=== PATIENT | male | born 1965 | race Caucasian/White ===

== ENCOUNTER → 2017-04-14 | Outpatient (CLI) | payer BC ==
[~2017-04-14] MED LIST: ATOR-24 PO
[2017-04-14 10:04] LABS: CHOLESTEROL/HDL RATIO 5.5
== END | disposition home or self-care (01) ==
LOC: C.LAB1850 08:37
PROVIDERS: ATTEND Internal Medicine Cardiovascular Disease
DX: E78.00 Pure hypercholesterolemia, unspecified (principal); R79.89 Other specified abnormal findings of blood chemistry

== ENCOUNTER 2024-03-09 12:03 | Inpatient (IN) ==
--- NOTE | 2024-03-09 12:27 | Emergency Department Note ---
History of Present Illness General Chief complaint: Urinary Symptoms Stated complaint: UTI - CONT WITH FEVER AND CHILLS Time Seen by Provider: 03/09/24 12:13 History of Present Illness Maximum Pain Intensity: 6 This is a 58-year-old male that presents to the emergency department via private vehicle with complaints of "UTI, sweating, hot sensation,". The patient states that this past Monday he noted some left flank pain described as more of an achy sensation/"stinging". He then notes progression of symptoms to include dysuria and then was seen at [facility] on 03/07/24. Patient states that he was given an injection of ceftriaxone which was found to be 1000 mg as well as started on oral Bactrim. The patient has taken about 4 doses thus far of the Bactrim. Although he is feeling better in regard to dysuria and flank pain, now he notes he is experiencing sensation of hot, clammy and also notes that he is soaking his bed sheets and sweat. No history of similar. Currently on oral metformin as well as atorvastatin. No other pertinent past medical history, surgeries or allergies. Home Medications Medication Instructions Recorded Confirmed Type atorvastatin 40 mg tablet 40 mg PO QPM #90 tabs 04/11/23 03/09/24 Rx metformin 1,000 mg tablet 1,000 mg PO DAILY #90 tabs 08/15/23 03/09/24 Rx sulfamethoxazole 800 1 tab PO BID 03/09/24 03/09/24 History mg-trimethoprim 160 mg tablet Allergies Allergy/AdvReac Type Severity Reaction Status Date / Time No Known Drug Allergies Allergy Verified 08/15/23 14:25 Past Med/Surg History Problem List (Updated 03/09/24 @ 22:42 by Nahid Pillai PA-C) Elevated procalcitonin (Acute) Hyponatremia (Acute) Prediabetes UTI (urinary tract infection) (Acute) Acute pyelonephritis Abnormal liver function test (Acute) Hypercholesterolemia Hyperglycemia (Acute) Viral infection Hypertension (Chronic) Superficial thrombophlebitis (Acute) Family History (Updated 03/25/19 @ 11:09 by Wyatt Flores) Father No pertinent family history Social History Smoking Status: Never smoker Hx Alcohol Use: Yes Alcohol type: beer Hx Substance Use: No Communication Ability: Effective Beliefs That Will Affect Care: None Current Living Situation: Family Feels Safe at Home: Yes Safety Concerns: Feels Safe At This Time Assistive Devices: Glasses and Hospital Bed Review of Systems A total of 10 systems reviewed and were otherwise negative Physical Exam Vital Signs Vital Signs - 24 hr 03/09/24 12:09 03/09/24 12:43 03/09/24 12:44 Temperature 36.4 C L Temperature Source Temporal Artery Scan Pulse Rate 77 73 68 Pulse Rate [Apical] Pulse Rate from SpO2 Sensor Pulse Rhythm [Apical] Pulse Strength [Apical] Respiratory Rate 18 18 Respiratory Effort / Characteristics Non-Labored Respiratory Depth Normal Respiratory Pattern Regular Blood Pressure 130/87 Blood Pressure [Right Arm] Blood Pressure Mean 101 Blood Pressure Mean [Right Arm] Pulse Oximetry 97 96 Oxygen Delivery Method Room Air Room Air Sepsis Recent Fever Within 48 Hours No Sepsis New/Unexplained Change in Mental Status N/A Sepsis Action Taken by Nursing No Action Required 03/09/24 12:54 03/09/24 13:00 03/09/24 13:00 Temperature Temperature Source Pulse Rate 67 68 Pulse Rate [Apical] Pulse Rate from SpO2 Sensor Pulse Rhythm [Apical] Pulse Strength [Apical] Respiratory Rate 20 20 Respiratory Effort / Characteristics Respiratory Depth Respiratory Pattern Blood Pressure 124/82 Blood Pressure [Right Arm] Blood Pressure Mean 103 Blood Pressure Mean [Right Arm] Pulse Oximetry Oxygen Delivery Method Sepsis Recent Fever Within 48 Hours Sepsis New/Unexplained Change in Mental Status Sepsis Action Taken by Nursing 03/09/24 13:30 03/09/24 13:30 03/09/24 14:00 Temperature Temperature Source Pulse Rate 68 Pulse Rate [Apical] Pulse Rate from SpO2 Sensor Pulse Rhythm [Apical] Pulse Strength [Apical] Respiratory Rate 15 Respiratory Effort / Characteristics Respiratory Depth Respiratory Pattern Blood Pressure 114/73 121/79 Blood Pressure [Right Arm] Blood Pressure Mean 94 91 Blood Pressure Mean [Right Arm] Pulse Oximetry Oxygen Delivery Method Sepsis Recent Fever Within 48 Hours Sepsis New/Unexplained Change in Mental Status Sepsis Action Taken by Nursing 03/09/24 14:00 03/09/24 15:14 Temperature Temperature Source Pulse Rate 65 Pulse Rate [Apical] 71 Pulse Rate from SpO2 Sensor 65 Pulse Rhythm [Apical] Regular Pulse Strength [Apical] Normal Respiratory Rate 21 18 Respiratory Effort / Characteristics Non-Labored Spontaneous Respiratory Depth Normal Respiratory Pattern Regular Blood Pressure Blood Pressure [Right Arm] 114/84 Blood Pressure Mean Blood Pressure Mean [Right Arm] 94 Pulse Oximetry 96 99 Oxygen Delivery Method Room Air Sepsis Recent Fever Within 48 Hours Sepsis New/Unexplained Change in Mental Status Sepsis Action Taken by Nursing VITAL SIGNS - Vital signs and nursing notes were reviewed. Stable and afebrile. GENERAL -58-year-old male appearing his stated age who is in no acute distress. Communicates well with provider and answers questions appropriately. SKIN - Without rashes. No meningeal or petechial rash. HEAD - NC/AT. EYES - Sclera anicteric. MOUTH/OROPHARYNX - Without perioral cyanosis. NECK - Neck with FROM. No nuchal rigidity. LUNGS - Chest wall symmetric without accessory muscle use, intercostals retractions, or central cyanosis. Normal vesicular breath sounds CTA B/L. No wheezes, rales, or rhonchi appreciated. CARDIAC - RRR ABDOMEN - Abdominal contour normal without pulsations or visible masses. BS normoactive all four quadrants. No tenderness, palpable masses, hepatosplenomegaly, or ascites noted. EXTREMITIES - No clubbing or peripheral cyanosis. +5/5 strength noted in UE/LE bilaterally. NEUROLOGIC - Cranial nerves II through XII grossly intact. PSYCH -alert, oriented and pleasant on exam. Course Administered Medications Sodium Chloride (Nss) 1,000 mls @ 125 mls/hr IV .Q8H CHECO Stop: 03/10/24 01:21 Last Admin: 03/09/24 17:47 Dose: 125 mls/hr Documented By: ADB Melatonin (Melatonin 3 Mg Tab) 9 mg PO HS PRN PRN Reason: Insomnia Stop: 04/08/24 17:21 Last Admin: 03/09/24 21:12 Dose: 9 mg Documented By: CRH Discontinued Medications Sodium Chloride (Nss) 1,000 mls @ 999 mls/hr IV .Q1H1M CHECO Stop: 03/09/24 13:30 Last Infusion: 03/09/24 14:32 Dose: Infused Documented By: Admin: 03/09/24 12:37 Dose: 999 mls/hr Documented By: GISSELL Ceftriaxone Sodium (Rocephin) 2,000 mg in 50 mls @ 100 mls/hr IV NOW STA Stop: 03/09/24 15:24 Last Infusion: 03/09/24 15:41 Dose: Infused Documented By: Admin: 03/09/24 15:12 Dose: 100 mls/hr Documented By: KODI Ibuprofen (Ibuprofen 200 Mg Tab) 400 mg PO Q6H PRN PRN Reason: Pain or Fever Stop: 04/08/24 17:21 Last Admin: 03/09/24 19:19 Dose: 400 mg Documented By: LUIS E Ibuprofen (Ibuprofen 200 Mg Tab) 400 mg PO NOW STA Stop: 03/09/24 20:43 Last Admin: 03/09/24 21:11 Dose: 400 mg Documented By: LUIS E Ioversol (Optiray 320 100ml) 94 ml IV ONCE ONE Stop: 03/09/24 13:45 Last Admin: 03/09/24 13:44 Dose: 94 ml Documented By: KEVIN Medical Decision Making Laboratory Data 03/09/24 12:30 03/09/24 12:30 Lab Results 03/09/24 03/09/24 03/09/24 Range/Units 12:30 12:30 12:30 WBC 6.66 (4.8-10.8) K/ul RBC 5.48 (4.70-6.10) M/uL Hgb 16.2 (14.0-18.0) g/dl Hct 48.0 (42.0-52.0) % MCV 87.6 (80.0-100.0) fL MCH 29.6 (25.0-34.0) pg MCHC 33.8 (32.0-36.0) g/dL RDW Std Deviation 42.4 (36.4-46.3) fL RDW Coeff of Bryan 13.2 (11.5-14.5) % Plt Count 224 (130-400) K/uL MPV 10.2 (9.4-12.4) fL Immature Gran % (Auto) 0.3 % Neut % (Auto) 76.2 % Lymph % (Auto) 11.3 % [place] % (Auto) 11.6 % Eos % (Auto) 0.3 % Baso % (Auto) 0.3 % Neut # (Auto) 5.08 (1.40-6.50) K/uL Lymph # (Auto) 0.75 L (1.20-3.40) K/uL [place] # (Auto) 0.77 H (0.11-0.59) K/uL Eos # (Auto) 0.02 (0.00-0.50) K/uL Baso # (Auto) 0.02 (0.00-0.20) K/uL Immature Gran # (Auto) 0.02 (0.01-0.20) K/uL Sodium 132 L (136-145) mmol/L Potassium 3.8 (3.5-5.1) mmol/L Chloride 97 L (98-107) mmol/L Carbon Dioxide 28 (21-32) mmol/L Anion Gap 7 (3-11) BUN 22 (6-23) mg/dl Creatinine 1.06 (0.6-1.4) mg/dl Est Cr Clr Drug Dosing 94.9 ml/min Est GFR ( Amer) 90.5 ml/min Est GFR (Non-Af Amer) 78.1 ml/min BUN/Creatinine Ratio 20.8 H (10-20) Glucose 97 (70-99(Fasting)) mg/dl Lactate 1.2 (0.4-2.0) mmol/L Calcium 9.5 (8.6-10.3) mg/dl Total Bilirubin 0.7 (0.2-1.0) mg/dl AST 169 H (13-39) U/L ALT 206 H (7-52) U/L Alkaline Phosphatase 275 H (34-104) U/L Total Protein 7.6 (6.0-8.3) gm/dl Albumin 4.3 (3.4-5.0) gm/dl Globulin 3.3 (2.5-4.0) gm/dl Albumin/Globulin Ratio 1.3 (0.9-2) Procalcitonin 0.61 H (0-0.5) ng/ml Urine Color Urine Appearance (Clear) Urine pH (4.5-7.5) Ur Specific [place] (1.000-1.030) Urine Protein (Negative) Urine Glucose (UA) (Negative) Urine Ketones (Negative) Urine Blood (Negative) Urine Nitrite (Negative) Urine Bilirubin (Negative) Urine Urobilinogen (Negative) Ur Leukocyte Esterase (Negative) Urine WBC (Auto) (0-5) /hpf Urine RBC (Auto) (0-2) /hpf U Hyaline Cast (Auto) (0-2) /lpf U Epithel Cells (Auto) (0-2) /hpf Urine Bacteria (Auto) (None Seen) Anaplasma Smear See Comment Cancelled Babesia Smear See Comment Cancelled Lyme Disease Screen Negative (Negative) 03/09/24 Range/Units 13:47 WBC (4.8-10.8) K/ul RBC (4.70-6.10) M/uL Hgb (14.0-18.0) g/dl Hct (42.0-52.0) % MCV (80.0-100.0) fL MCH (25.0-34.0) pg MCHC (32.0-36.0) g/dL RDW Std Deviation (36.4-46.3) fL RDW Coeff of Bryan (11.5-14.5) % Plt Count (130-400) K/uL MPV (9.4-12.4) fL Immature Gran % (Auto) % Neut % (Auto) % Lymph % (Auto) % [place] % (Auto) % Eos % (Auto) % Baso % (Auto) % Neut # (Auto) (1.40-6.50) K/uL Lymph # (Auto) (1.20-3.40) K/uL [place] # (Auto) (0.11-0.59) K/uL Eos # (Auto) (0.00-0.50) K/uL Baso # (Auto) (0.00-0.20) K/uL Immature Gran # (Auto) (0.01-0.20) K/uL Sodium (136-145) mmol/L Potassium (3.5-5.1) mmol/L Chloride (98-107) mmol/L Carbon Dioxide (21-32) mmol/L Anion Gap (3-11) BUN (6-23) mg/dl Creatinine (0.6-1.4) mg/dl Est Cr Clr Drug Dosing ml/min Est GFR ( Amer) ml/min Est GFR (Non-Af Amer) ml/min BUN/Creatinine Ratio (10-20) Glucose (70-99(Fasting)) mg/dl Lactate (0.4-2.0) mmol/L Calcium (8.6-10.3) mg/dl Total Bilirubin (0.2-1.0) mg/dl AST (13-39) U/L ALT (7-52) U/L Alkaline Phosphatase (34-104) U/L Total Protein (6.0-8.3) gm/dl Albumin (3.4-5.0) gm/dl Globulin (2.5-4.0) gm/dl Albumin/Globulin Ratio (0.9-2) Procalcitonin (0-0.5) ng/ml Urine Color Yellow Urine Appearance Clear (Clear) Urine pH 6.5 (4.5-7.5) Ur Specific [place] 1.016 (1.000-1.030) Urine Protein Negative (Negative) Urine Glucose (UA) Negative (Negative) Urine Ketones Negative (Negative) Urine Blood Negative (Negative) Urine Nitrite Negative (Negative) Urine Bilirubin Negative (Negative) Urine Urobilinogen Negative (Negative) Ur Leukocyte Esterase 2+ H (Negative) Urine WBC (Auto) 21-50 H (0-5) /hpf Urine RBC (Auto) 0-2 (0-2) /hpf U Hyaline Cast (Auto) 0-2 (0-2) /lpf U Epithel Cells (Auto) 0-2 (0-2) /hpf Urine Bacteria (Auto) None Seen (None Seen) Anaplasma Smear Babesia Smear Lyme Disease Screen (Negative) Imaging Data Radiologist's Impression: Abdomen/Pelvis CT 03/09/24 12:21 CT abd pelvis IV con only CLINICAL HISTORY: L flank pain, dysuria, uti TECHNIQUE: Helical axial images of the abdomen and pelvis were obtained and displayed. Automated dose lowering techniques and/or adjustment according to patient size were utilized for this exam. This exam was performed with intravenous contrast. CT DOSE: 1446.54 mGy.cm COMPARISON: None available at the time of this dictation. FINDINGS: Lower chest: Bibasilar atelectasis versus scarring is seen. Liver: Unremarkable. No focal lesions are seen. Gallbladder and biliary tree: No calcified gallstones. Normal caliber wall. No intra- or extrahepatic biliary ductal dilation. Pancreas: Unremarkable, no focal lesions. Spleen: Splenule is incidentally noted. Adrenals: Unremarkable. Kidneys and ureters: Perinephric stranding is noted bilaterally. Bladder: Unremarkable. Reproductive organs: Unremarkable. Bowel: The appendix is normal. Lymph nodes Retroperitoneal: Unremarkable. Pelvic: Unremarkable. Mesenteric: Unremarkable. Peritoneum: Normal. Vessels: Unremarkable. Abdominal wall: Unremarkable. Bones: Unremarkable. IMPRESSION: No acute abnormality and in particular no evidence of obstructive nephrolithiasis or hydronephrosis. No diverticulitis is seen. ACT 112: Negative or not required by law. Electronically signed by: Stanislaw Patel M.D. 03/09/2024 2:44 PM MDM Narrative Patient was seen and evaluated as above in room B02. Review was performed of triage nursing notes and vital signs. No previous ED visits for review at time of evaluation. Patient does present with documentation from [facility] which I did review. He did receive IM ceftriaxone and started on Bactrim about 2 days ago. After obtaining a thorough history and physical examination the above work up was performed. 12:36 PM: I called the [facility] office where the patient was recently seen and dx with uti in an attempt to obtain urine culture results if available. The culture was faxed over and it was a pulmonary report. This did show E. coli greater than 100,000 colony-forming units per mL. There are no sensitivities for review at this time. Despite the antibiotics, patient notes sweats, hot sensation. Labs reveal no leukocytosis or concerning anemia. Mild hyponatremia 132. There is mild elevation of BUN/creatinine ratio at 20.8. Mild hyperglycemia 136. There is transaminitis noted. Patient denies any recent acetaminophen use or any excessive acetaminophen use. He denies any alcohol use. This appears to be a new finding. In the setting of associated hyponatremia will add tickborne labs at this time to include anaplasmosis, babesiosis and Lyme disease. Lactate returned normal. Procalcitonin 0.61. Although the patient does not have any septic vital signs, this does further support suspicion for infectious process. The patient's urinalysis did return with evidence of infection noting 2+ leukocytes and 2150 white blood cells. This appears to be a noncontaminated sample. No bacteria seen. Lyme screen negative. Smear for Anaplasma and Babesia returned negative with PCR testing pending. A CT scan was then performed of the abdomen/pelvis. This does not show any acute abnormality per radiologist however I will note that I am concerned about ascending urinary tract infection clinically. Blood culture pending. IV ceftriaxone was ordered to cover the suspected urinary source of infection as well as IV fluids. The patient does require hospitalization at this time noting progression of symptoms despite outpatient antibiotics with UTI. Case was discussed with the hospitalist service. Please refer to further documentation regarding his stay. GCS: 15 In the evaluation and treatment of this patient the following differential diagnoses were entertained: UTI, pyelonephritis, diverticulitis, sepsis, kidney stone, among others. Impression & Plan UTI (urinary tract infection), Hyperglycemia, Abnormal liver function test, Hyponatremia, Elevated procalcitonin Discharge Plan Visit Data Chief Complaint: Urinary Symptoms Stated Complaint: UTI - CONT WITH FEVER AND CHILLS ED Provider: [facility] Provider: Nahid Pillai Discharge Problem: UTI (urinary tract infection), Hyperglycemia, Abnormal liver function test, Hyponatremia, Elevated procalcitonin Patient Disposition: Admitted As Inpatient Condition: Good Discharge Instructions Interventions: ED Discharge Assessment Last Done: 03/09/24 17:15
[2024-03-09] MEDS: SODIUM CHLORIDE 0.9% 1,000 ML IV SCH ×2 (12:37→17:47)
[2024-03-09 13:04] LABS: Basophils # (auto) 0.02 K/uL (0.00-0.20); Basophils % (auto) 0.3 %; Eosinophils # (auto) 0.02 K/uL (0.00-0.50); Eosinophils % (auto) 0.3 %; Hemoglobin 16.2 g/dl (14.0-18.0); Immature Granulocytes # (auto) 0.02 K/uL (0.01-0.20); Immature Granulocytes % (auto) 0.3 %; Lymphocytes # (auto) 0.75 K/uL (1.20-3.40); Lymphocytes % (auto) 11.3 %; Mean Corpuscular Hemoglobin 29.6 pg (25.0-34.0); Mean Corpuscular Hgb Conc 33.8 g/dL (32.0-36.0); Mean Corpuscular Volume 87.6 fL (80.0-100.0); Mean Platelet Volume 10.2 fL (9.4-12.4); Monocytes # (auto) 0.77 K/uL (0.11-0.59); Monocytes % (auto) 11.6 %; Neutrophils # (auto) 5.08 K/uL (1.40-6.50); Neutrophils % (auto) 76.2 %; Platelet Count 224 K/uL (130-400); RDW Coefficient of Variation 13.2 % (11.5-14.5); RDW Standard Deviation 42.4 fL (36.4-46.3); Red Blood Count 5.48 M/uL (4.70-6.10); White Blood Count 6.66 K/ul (4.8-10.8)
[2024-03-09 13:22] LABS: Albumin Globulin Ratio 1.3 (0.9-2); Albumin Level 4.3 gm/dl (3.4-5.0); BUN Creatinine Ratio 20.8 (10-20); Bilirubin,Total 0.7 mg/dl (0.2-1.0); Calcium 9.5 mg/dl (8.6-10.3); Creatinine Clr Calc Pharmacy 94.9 ml/min; Est GFR (African American) 90.5 ml/min; Est GFR (Non-African American) 78.1 ml/min; Globulin 3.3 gm/dl (2.5-4.0); Potassium 3.8 mmol/L (3.5-5.1); Total Protein 7.6 gm/dl (6.0-8.3)
[2024-03-09] MEDS: OPTIRAY 320 100ml IV ONE (13:44)
[2024-03-09 14:02] LABS: Appearance Urine Clear (Clear); Bacteria Urine Automated None Seen (None Seen); Bilirubin Urine Negative (Negative); Blood Urine Negative (Negative); Cast Urine Automated 0-2 /lpf (0-2); Color Urine Yellow; Epithelial Cell Urine Auto 0-2 /hpf (0-2); Glucose Urine UA Negative (Negative); Ketones Urine Negative (Negative); Leukocyte Esterase Urine 2+ (Negative); Nitrite Urine Negative (Negative); Protein Urine Negative (Negative); RBC Urine Automated 0-2 /hpf (0-2); Specific Gravity Urine 1.016 (1.000-1.030); Urobilinogen Urine Negative (Negative); WBC Urine Automated 21-50 /hpf (0-5); pH Urine 6.5 (4.5-7.5)
--- NOTE | 2024-03-09 14:46 | CT Scan Report ---
CT abd pelvis IV con only CLINICAL HISTORY: L flank pain, dysuria, uti TECHNIQUE: Helical axial images of the abdomen and pelvis were obtained and displayed. Automated dose lowering techniques and/or adjustment according to patient size were utilized for this exam. This e xam was performed with intravenous contrast. CT DOSE: 1446.54 mGy.cm COMPARISON: None available at the time of this dictation. FINDINGS: Lower chest: Bibasilar atelectasis versus scarring is seen. Liver: Unremarkable. No focal lesions are seen. Gallbladder and biliary tree: No calcified gallstones. Normal caliber wall. No intra- or extrahepatic biliary ductal dilation. Pancreas: Unremarkable, no focal lesions. Spleen: Splenule is incidentally noted. Adrenals: Unremarkable. Kidneys and ureters: Perinephric stranding is noted bilaterally. Bladder: Unremarkable. Reproductive organs: Unremarkable. Bowel: The appendix is normal. Lymph nodes Retroperitoneal: Unremarkable. Pelvic: Unremarkable. Mesenteric: Unremarkable. Peritoneum: Normal. Vessels: Unremarkable. Abdominal wall: Unremarkable. Bones: Unremarkable. IMPRESSION: No acute abnormality and in particular no evidence of obstructive nephrolithiasis or hydronephrosis. No diverticulitis is seen. ACT 112: Negative or not required by law. Electronically signed by: Stanislaw Patel M.D. 03/09/2024 2:44 PM
[2024-03-09] MEDS: cefTRIAXone SODIUM 2,000 MG/50 ML BAG IV STA (15:12)
--- NOTE | 2024-03-09 16:36 | History & Physical Report ---
Date of Service March 09, 2024 Assessment & Plan (1) Acute pyelonephritis: Plan: Acute bilateral pyelonephritis secondary to e. coli UTI - Place in observation to med/surg - Urine culture with E. coli from [facility], sensitivities not provided - Repeat UA with reflex culture and sensitivity has been ordered - CTAP w/ bilateral perinephritic stranding c/w pyelo - Stop Bactrim, given Rocephin 2g in ED, will continue IV daily, convert to Cefdinir 300mg BID upon discharge, would treat for 10-14 days - Ibuprofen for fever/pain d/t transaminitis - IVF with NSS @ 125 ml/hr x1 L then stop (2) Abnormal liver function test: Plan: ?Acute v chronic - Has been told he had elevated LFTs in the past but today's values are higher than previous - AST 169, ALT 206, ALP 275 - On both Metformin and Atorvastatin, will hold both, rec drug holiday for statin x3 months - IVF given as noted above, trend LFTs wtih CMP in AM - No abnormal liver imaging noted on CT - F/u with Dr. Braun as o/p - Tick borne studies negative (3) Hypercholesterolemia: Plan: Chronic - On Atorvastatin x many years - Hold due to transaminitis (4) Prediabetes: Plan: Chronic - Last a1c 6.1% in August 2023 - On Metformin 1000mg daily which was increased in August from 500mg daily - D/c due to transaminitis and would consider alternative agent, may be good candidate for GLP1 given obesity Plan Lovenox has been ordered for DVT ppx. AM labs have been ordered including cbc and cmp. Above plan of care has been d/w Dr. Aguillon who will also see and evaluate this patient. Further orders will be implemented as warranted by attending. History of Present Illness Chief Complaint: Fever and chills Primary Care Provider: Jack Braun MD Naif Means is a 58 yo M with a pmhx of borderline DMT2, obesity, and HLD who presents to the ER today c/o persistent fever and chills despite being on treatment for the past 3 days for a UTI. He reports that on Monday or Monday of this week, he was experiencing mid back pain that was worse on the left side. The following day, he began having dysuria. He has no prior h/o UTIs and has had no issues with hematuria in the past, post void dribbling, urinary retention or hesitancy. His symptoms then progressed to generalized myalgias and chills. He went to [facility] on 03/07 and he was diagnosed with a UTI. He was given a dose of IM Rocephin and prescribed a course of Bactrim DS. Despite the Bactrim, he reports ongoing headache and suspected fever + chills which subsequently prompted him to come to the ER for evaluation. Here, he has a normal wbc count without left shift. He has a mildly elevated procalcitonin level of 0.61. His LFTs including his AST, ALT, and alk phos are elevated. He denies any recent tick bites. CTAP was negative for cirrhotic disease of the liver or any CBD dilatation. He is currently on Atorvastatin 40mg daily for HLD and is also on Metformin for borderline DM which was increased back in August from 500mg daily to 1000mg daily. He seldomly uses etoh, maybe once a month. Father had liver disease due to alcohol. He was medicated with 2g IV Rocephin and 1L of NSS. He is currently resting comfortably in his room and has no complaints. He denies abd pain, n/v/d, headache, fever, chills, chest pain or dyspnea. He is being placed in observation for further care. Allergies Allergy/AdvReac Type Severity Reaction Status Date / Time No Known Drug Allergies Allergy Verified 08/15/23 14:25 Home Medications Medication Instructions Recorded Confirmed Type atorvastatin 40 mg tablet 40 mg PO QPM #90 tabs 04/11/23 03/09/24 Rx metformin 1,000 mg tablet 1,000 mg PO DAILY #90 tabs 08/15/23 03/09/24 Rx ciprofloxacin HCl 500 mg tablet 500 mg PO BID 10 days #20 tabs 03/11/24 Rx Past Med/Surg History Problem List (Updated 03/17/24 @ 06:09 by Juan Carlos Aguillon MD) Elevated procalcitonin (Acute) Hyponatremia (Acute) UTI (urinary tract infection) (Acute) Acute pyelonephritis Abnormal liver function test (Acute) Hyperglycemia (Acute) Viral infection Superficial thrombophlebitis (Acute) Medical History (Updated 03/17/24 @ 06:09 by Juan Carlos Aguillon MD) Prediabetes Hypercholesterolemia Hypertension Family History Father No pertinent family history Social History Smoking Status: Never smoker Hx Alcohol Use: Yes Alcohol type: beer Hx Substance Use: No Communication Ability: Effective Beliefs That Will Affect Care: None Current Living Situation: Family Feels Safe at Home: Yes Assistive Devices: None Review of Systems 2 Review of Systems: All systems reviewed and are unremarkable except as noted in HPI and below. Denies nasal congestion, sore throat, cough, chest pain, shortness of breath, palpitations, orthopnea, PND, abdominal pain, n/v/d, constipation, dysuria, hematuria, frequency, joint pain or swelling, easy bruising or bleeding, skin lesions or rashes. Physical Exam 2 Physical Exam: GENERAL: 58 yo obese middle aged WM. NAD. EYES: EOMI. PERRLA. Anicteric. HENT: Moist mucous membranes. No scleral icterus. No cervical lymphadenopathy. LUNGS: Clear to auscultation bilaterally. No accessory muscle use. No W/R/R. CARDIOVASCULAR: Regular rate and rhythm. No M/G/R. No JVD. ABDOMEN: Soft, non-tender and non-distended. No palpable masses. Bs normoactive x 4 quad. -CVA tenderness. EXTREMITIES: No edema. Non-tender. Peripheral pulses +2/4. NEUROLOGIC: A&O x3. No focal neurological deficits. CN II-XII grossly intact. PSYCHIATRIC: Cooperative. Appropriate mood and affect. SKIN: Warm, dry, intact. No rashes or lesions. Results & Data Results & Data Vital Signs (Past 12 Hours) Vital Signs Temp Pulse Pulse Resp BP BP Pulse Ox 03/09/24 15:14 71 18 114/84 99 03/09/24 14:00 65 21 96 03/09/24 14:00 121/79 03/09/24 13:30 68 15 03/09/24 13:30 114/73 03/09/24 13:00 68 20 03/09/24 13:00 124/82 03/09/24 12:54 67 20 03/09/24 12:44 68 03/09/24 12:43 73 18 96 03/09/24 12:09 36.4 C L 77 18 130/87 97 O2 Del Method 03/09/24 15:14 Room Air 03/09/24 14:00 03/09/24 14:00 03/09/24 13:30 03/09/24 13:30 03/09/24 13:00 03/09/24 13:00 03/09/24 12:54 03/09/24 12:44 03/09/24 12:43 Room Air 03/09/24 12:09 Room Air Laboratory Results 03/09/24 12:30 03/09/24 12:30 Diagnostic Findings Abdomen/Pelvis CT 03/09/24 12:21 CT abd pelvis IV con only CLINICAL HISTORY: L flank pain, dysuria, uti TECHNIQUE: Helical axial images of the abdomen and pelvis were obtained and displayed. Automated dose lowering techniques and/or adjustment according to patient size were utilized for this exam. This exam was performed with intravenous contrast. CT DOSE: 1446.54 mGy.cm COMPARISON: None available at the time of this dictation. FINDINGS: Lower chest: Bibasilar atelectasis versus scarring is seen. Liver: Unremarkable. No focal lesions are seen. Gallbladder and biliary tree: No calcified gallstones. Normal caliber wall. No intra- or extrahepatic biliary ductal dilation. Pancreas: Unremarkable, no focal lesions. Spleen: Splenule is incidentally noted. Adrenals: Unremarkable. Kidneys and ureters: Perinephric stranding is noted bilaterally. Bladder: Unremarkable. Reproductive organs: Unremarkable. Bowel: The appendix is normal. Lymph nodes Retroperitoneal: Unremarkable. Pelvic: Unremarkable. Mesenteric: Unremarkable. Peritoneum: Normal. Vessels: Unremarkable. Abdominal wall: Unremarkable. Bones: Unremarkable. IMPRESSION: No acute abnormality and in particular no evidence of obstructive nephrolithiasis or hydronephrosis. No diverticulitis is seen. ACT 112: Negative or not required by law. Electronically signed by: Stanislaw Patel M.D. 03/09/2024 2:44 PM Supervising Physician Co-Signing Physician Notes Attending Attestation & Admit Note: Pt seen/examined, chart reviewed, care plan d/w KVNG Ferrer. I agree w/ the joe components of her admission documentation. 58yo male with history of Pre-DM, HTN, hyperlipidemia who presented with ongoing fevers, chills, poor appetite, and simply feeling unwell. He had been seen at a local urgent care on 03/07 and dx with pyelonephritis based on his clinical picture. Was given rocephin IM x 1 and was sent home on bactrim DS BID. Despite the above he continued with fevers. Upon ER presentation today he had evidence of abnormal LFTs/acute hepatitis. PMH/PSH/allergies/meds/sochx/famhx - reviewed VSS gen - nontoxic, NAD mouth - MM slightly dry neck - no JVD heart - RRR, s1 s2, no murmur lungs - CTA b/l abd - soft ND BS+; no HSM; b/l flanks nontender to palpation ext - no edema, pulses 2+ b/l skin - no jaundice labs reviewed limited urgent care information reviewed imaging reviewed - "Perinephric stranding is noted bilaterally" A/P: 1. ecoli UTI/pyelonephritis 2. acute hepatitis/abnormal LFTs 3. pre-DM 4. h/o hyperlipidemia & HTN agree with IV rocephin will call urgent care tomorrow to see if e.coli sensitivities are available serial LFTs; anaplasmosis DNA sent; check acute hepatitis profile and consider EBV/CMV hold statin follow blood cx's here Juan Carlos Aguillon MD PG Care Time/CCT Total # of Minutes Spent Total Time Spent with Patient: Total time spent is greater than 50% in coordination of care (as documented) at patient's floor/unit and/or counseling patient: 75 including face to face, chart review, discussing case with ER provider, entering orders into chart, and documenting in electronic medical record. Coding Level of Care Code 92939 INT INP/OBS CARE MIN Diagnoses Acute pyelonephritis N10 Abnormal liver function test R94.5 Hypercholesterolemia E78.00 Prediabetes R73.03
[2024-03-09] MEDS ORDERED: MAGNESIUM HYDROXIDE SUSP 30 ML UDC PO PRN (17:22)
[2024-03-09] MEDS ORDERED: ONDANSETRON INJ 2 MG/ML 2 ML VIAL IV PRN (17:22)
[2024-03-09] MEDS ORDERED: ALUMINUM/MAGNESIUM SUSP 30 ML UDC PO PRN (17:22)
[2024-03-09] MEDS ORDERED: MELATONIN 3 MG TAB PO PRN (17:22)
[2024-03-09] MEDS ORDERED: POLYETHYLENE (MIRALAX) 17 GM PACK PO PRN (17:22)
[2024-03-09] MEDS: IBUPROFEN 200 MG TAB PO PRN (19:19)
[2024-03-09] MEDS: IBUPROFEN 200 MG TAB PO STA (21:11)
[2024-03-09] MEDS: MELATONIN 3 MG TAB PO PRN (21:12)
[2024-03-10 06:47] LABS: Basophils # (auto) 0.03 K/uL (0.00-0.20); Basophils % (auto) 0.6 %; Eosinophils # (auto) 0.03 K/uL (0.00-0.50); Eosinophils % (auto) 0.6 %; Hematocrit (blood only) 43.8 % (42.0-52.0); Hemoglobin 14.6 g/dl (14.0-18.0); Immature Granulocytes # (auto) 0.03 K/uL (0.01-0.20); Immature Granulocytes % (auto) 0.6 %; Lymphocytes # (auto) 1.06 K/uL (1.20-3.40); Lymphocytes % (auto) 21.5 %; Mean Corpuscular Hemoglobin 29.3 pg (25.0-34.0); Mean Corpuscular Hgb Conc 33.3 g/dL (32.0-36.0); Mean Platelet Volume 10.3 fL (9.4-12.4); Monocytes # (auto) 1.01 K/uL (0.11-0.59); Monocytes % (auto) 20.5 %; Neutrophils # (auto) 2.77 K/uL (1.40-6.50); Neutrophils % (auto) 56.2 %; Platelet Count 211 K/uL (130-400); RDW Standard Deviation 41.8 fL (36.4-46.3); Red Blood Count 4.98 M/uL (4.70-6.10); White Blood Count 4.93 K/ul (4.8-10.8)
[2024-03-10 07:20] LABS: Albumin Globulin Ratio 1.3 (0.9-2); Albumin Level 3.6 gm/dl (3.4-5.0); BUN Creatinine Ratio 18.6 (10-20); Bilirubin,Total 0.5 mg/dl (0.2-1.0); Calcium 8.4 mg/dl (8.6-10.3); Creatinine Clr Calc Pharmacy 98.6 ml/min; Est GFR (African American) 94.8 ml/min; Est GFR (Non-African American) 81.8 ml/min; Globulin 2.8 gm/dl (2.5-4.0); Total Protein 6.4 gm/dl (6.0-8.3)
[2024-03-10] MEDS: IBUPROFEN 800 MG TAB PO PRN (11:14)
[2024-03-10] MEDS: cefTRIAXone SODIUM 2,000 MG/50 ML BAG IV SCH (15:02)
--- NOTE | 2024-03-10 18:55 | Ultrasound Report ---
US gallbladder CLINICAL HISTORY: abnormal LFTs; eval biliary tract disease TECHNIQUE: Multiple real-time sonographic images of the right upper quadrant were obtained. Comparison: Comparison is made to CT abdomen pelvis 03/09/2024 FINDINGS: Echogenic foci are seen with scattered echogenic foci with a starry ron appearance. No focal mass les ions are seen. No intrahepatic ductal dilatation is seen. Gallbladder stone is partially visualiz ed at the gallbladder neck. The wall measures 0.2 cm in thickness. A sonographic Horvath's sign was no t elicited by the plumbing service technician. The common duct measures 0.4 cm in diameter at the level of the hepa tic artery. The visualized portions of the pancreas appear normal. The right kidney shows normal echogenicity, cortical thickness and renal contour. The right kidney sh ows no evidence of hydronephrosis or mass. No ascites or free fluid is seen in Yung's pouch. IMPRESSION: 1. Echogenic foci throughout a background of hypoechoic liver. These findings are nonspecific but ca n be seen in acute hepatitis. 2. Cholelithiasis without cholecystitis. ACT 112: Negative or not required by law. Electronically signed by: Stanislaw Patel M.D. 03/10/2024 6:53 PM
--- NOTE | 2024-03-10 20:29 | Hospitalist Progress Note ---
Date of Service March 10, 2024 Assessment & Plan (1) Acute pyelonephritis: Plan: CT a/p at time of admission w/ bilateral perinephritic stranding suggestive of pyelonephritis Had gone to local urgent care on 03/07 with flank pain and u/a during that urgent care visit was c/w UTI Given rocephin and d/c home on bactrim Culture grew pansensitive e.coli will not resume bactrim due to concern it could have caused the acute rise in LFTs will stop rocephin and change to PO cipro x 10 days overall he is slowly improving did d/w him today that fevers from pyelonephritis can sometimes last 4-5 days blood cx's remain negative here (2) Abnormal liver function test: Plan: etiology? 2nd to medications? (bactrim for UTI, statin) viral? other? obtain RUQ u/s since LFTs worsening - ensure no stones/biliary tract disease are present repeat LFTs in am consider CMV/EBV/acute hepatitis profile (3) Hypercholesterolemia: Plan: On Atorvastatin but holding due to transaminitis (4) Prediabetes: Plan: Chronic - Last a1c 6.1% in August 2023 - On Metformin 1000mg daily which was increased in August from 500mg daily hold metformin while here Plan DVT proph - low risk, ambulating, defer on chemical means at this time Admission and Anticipated Discharge Date Admission Date: March 09, 2024 Subjective patient feeling somewhat better today improved appetite did have fever last pm, and feels feverish again this evening - but overall improved from prior no abd pain or N/V no LUTS no flank pain no back pain Review of Systems 2 Review of Systems: cv - no cp pulm - no cough or dyspnea GI - no abd pain Physical Exam 2 Physical Exam: gen - nontoxic, NAD, looks better today mouth - MMM neck - no JVD heart - RRR, s1 s2, no murmur lungs - CTA b/l back - nontender b/l flanks abd - soft NT ND BS+; no HSM ext - no edema, pulses 2+ b/l Results & Data Results & Data Vital Signs (Past 12 Hours) Vital Signs Temp Pulse Resp BP Pulse Ox O2 Del Method 03/10/24 15:26 36.9 C 69 16 131/89 95 Room Air Laboratory Results Laboratory Results - last 24 hr 03/09/24 03/10/24 19:51 06:05 WBC 4.93 RBC 4.98 Hgb 14.6 Hct 43.8 MCV 88.0 MCH 29.3 MCHC 33.3 RDW Std Deviation 41.8 RDW Coeff of Bryan 13.0 Plt Count 211 MPV 10.3 Immature Gran % (Auto) 0.6 Neut % (Auto) 56.2 Lymph % (Auto) 21.5 Reeves % (Auto) 20.5 Eos % (Auto) 0.6 Baso % (Auto) 0.6 Neut # (Auto) 2.77 Lymph # (Auto) 1.06 L Reeves # (Auto) 1.01 H Eos # (Auto) 0.03 Baso # (Auto) 0.03 Immature Gran # (Auto) 0.03 Sodium 135 L Potassium 4.0 Chloride 102 Carbon Dioxide 27 Anion Gap 6 BUN 19 Creatinine 1.02 Est Cr Clr Drug Dosing 98.6 Est GFR ( Amer) 94.8 Est GFR (Non-Af Amer) 81.8 BUN/Creatinine Ratio 18.6 Glucose 97 Calcium 8.4 L Magnesium 2.0 Total Bilirubin 0.5 AST 141 H ALT 187 H Alkaline Phosphatase 340 H Total Protein 6.4 Albumin 3.6 Globulin 2.8 Albumin/Globulin Ratio 1.3 A. phagocytophilum DNA Pending SARS-CoV-2, RNA, NAAT NEGATIVE Diagnostic Findings From [facility] - 03/07/24: - Microbiology 03/09/24 12:38 Blood Aerobic Blood Culture - Preliminary No growth in Aerobic bottle after 24 hours. 03/09/24 12:38 Blood Anaerobic Blood Culture - Preliminary No growth in Anaerobic bottle after 24 hours. 03/09/24 12:30 Blood Aerobic Blood Culture - Preliminary No growth in Aerobic bottle after 24 hours. 03/09/24 12:30 Blood Anaerobic Blood Culture - Preliminary No growth in Anaerobic bottle after 24 hours. 03/09/24 13:47 Urine,Clean Catch Urine Culture - Preliminary No growth - Less than 1,000 colonies/mL, Final report to follow. PG Care Time/CCT Total # of Minutes Spent Total Time Spent with Patient: Total time spent is greater than 50% in coordination of care (as documented) at patient's floor/unit and/or counseling patient: Coding Level of Care Code 92841 SUB INP/OBS CARE 2/35MIN Diagnoses Acute pyelonephritis N10 Abnormal liver function test R94.5 Hypercholesterolemia E78.00 Prediabetes R73.03
[2024-03-10] MEDS: hydrOXYzine HCl 25 MG TAB PO STA (22:48)
[2024-03-11 08:26] LABS: Albumin Globulin Ratio 1.3 (0.9-2); Albumin Level 3.9 gm/dl (3.4-5.0); BUN Creatinine Ratio 20.8 (10-20); Bilirubin,Total 0.4 mg/dl (0.2-1.0); Creatinine Clr Calc Pharmacy 104.7 ml/min; Globulin 3.1 gm/dl (2.5-4.0); Potassium 4.2 mmol/L (3.5-5.1)
[2024-03-11] MEDS: CIPROFLOXACIN 500 MG TAB PO SCH (08:47)
[2024-03-11 11:18] LABS: HepB Surface Ag with confirm Negative (Negative)
[2024-03-11 11:23] LABS: HepC Ab Rflx HepCQuant RNA Negative (Negative)
--- NOTE | 2024-03-11 16:38 | Discharge Summary ---
Date of Service date of admission - March 09, 2024 date of discharge - March 11, 2024 Admission HPI Per Admitting Provider Naif Means is a 58 yo M with a pmhx of borderline DMT2, obesity, and HLD who presents to the ER today c/o persistent fever and chills despite being on treatment for the past 3 days for a UTI. He reports that on Monday or Monday of this week, he was experiencing mid back pain that was worse on the left side. The following day, he began having dysuria. He has no prior h/o UTIs and has had no issues with hematuria in the past, post void dribbling, urinary retention or hesitancy. His symptoms then progressed to generalized myalgias and chills. He went to [facility] on 03/07 and he was diagnosed with a UTI. He was given a dose of IM Rocephin and prescribed a course of Bactrim DS. Despite the Bactrim, he reports ongoing headache and suspected fever + chills which subsequently prompted him to come to the ER for evaluation. Here, he has a normal wbc count without left shift. He has a mildly elevated procalcitonin level of 0.61. His LFTs including his AST, ALT, and alk phos are elevated. He denies any recent tick bites. CTAP was negative for cirrhotic disease of the liver or any CBD dilatation. He is currently on Atorvastatin 40mg daily for HLD and is also on Metformin for borderline DM which was increased back in August from 500mg daily to 1000mg daily. He seldomly uses etoh, maybe once a month. Father had liver disease due to alcohol. He was medicated with 2g IV Rocephin and 1L of NSS. He is currently resting comfortably in his room and has no complaints. He denies abd pain, n/v/d, headache, fever, chills, chest pain or dyspnea. He is being placed in observation for further care. Principal Diagnosis 1. pyelonephritis 2nd to e.coli - resolving 2. acute hepatitis / abnormal liver function tests - improving - due to sulfa antibiotic? other? 3. incidentally found gallstones Discharge Exam gen - nontoxic, NAD, looks well eyes - no icterus mouth - MMM neck - no JVD heart - RRR, s1 s2, no murmur lungs - CTA b/l back - nontender b/l flanks abd - soft NT ND BS+; no HSM ext - no edema, pulses 2+ b/l Discharge Data Allergies Allergy/AdvReac Type Severity Reaction Status Date / Time No Known Drug Allergies Allergy Verified 08/15/23 14:25 Ordered Studies Abdomen/Pelvis CT 03/09/24 12:21 CT abd pelvis IV con only CLINICAL HISTORY: L flank pain, dysuria, uti TECHNIQUE: Helical axial images of the abdomen and pelvis were obtained and displayed. Automated dose lowering techniques and/or adjustment according to patient size were utilized for this exam. This exam was performed with intravenous contrast. CT DOSE: 1446.54 mGy.cm COMPARISON: None available at the time of this dictation. FINDINGS: Lower chest: Bibasilar atelectasis versus scarring is seen. Liver: Unremarkable. No focal lesions are seen. Gallbladder and biliary tree: No calcified gallstones. Normal caliber wall. No intra- or extrahepatic biliary ductal dilation. Pancreas: Unremarkable, no focal lesions. Spleen: Splenule is incidentally noted. Adrenals: Unremarkable. Kidneys and ureters: Perinephric stranding is noted bilaterally. Bladder: Unremarkable. Reproductive organs: Unremarkable. Bowel: The appendix is normal. Lymph nodes Retroperitoneal: Unremarkable. Pelvic: Unremarkable. Mesenteric: Unremarkable. Peritoneum: Normal. Vessels: Unremarkable. Abdominal wall: Unremarkable. Bones: Unremarkable. IMPRESSION: No acute abnormality and in particular no evidence of obstructive nephrolithiasis or hydronephrosis. No diverticulitis is seen. ACT 112: Negative or not required by law. Electronically signed by: Stanislaw Patel M.D. 03/09/2024 2:44 PM Gallbladder Ultrasound 03/10/24 10:12 US gallbladder CLINICAL HISTORY: abnormal LFTs; eval biliary tract disease TECHNIQUE: Multiple real-time sonographic images of the right upper quadrant were obtained. Comparison: Comparison is made to CT abdomen pelvis 03/09/2024 FINDINGS: Echogenic foci are seen with scattered echogenic foci with a starry ron appearance. No focal mass lesions are seen. No intrahepatic ductal dilatation is seen. Gallbladder stone is partially visualized at the gallbladder neck. The wall measures 0.2 cm in thickness. A sonographic Horvath's sign was not elicited by the icer air conditioning. The common duct measures 0.4 cm in diameter at the level of the hepatic artery. The visualized portions of the pancreas appear normal. The right kidney shows normal echogenicity, cortical thickness and renal contour. The right kidney shows no evidence of hydronephrosis or mass. No ascites or free fluid is seen in Yung's pouch. IMPRESSION: 1. Echogenic foci throughout a background of hypoechoic liver. These findings are nonspecific but can be seen in acute hepatitis. 2. Cholelithiasis without cholecystitis. ACT 112: Negative or not required by law. Electronically signed by: Stanislaw Patel M.D. 03/10/2024 6:53 PM Hospital Course (1) Acute pyelonephritis: CT abd/pelvis at time of admission showed bilateral perinephritic stranding suggestive of pyelonephritis Had gone to local urgent care on 03/07/24 with flank pain and u/a during that urgent care visit was very c/w UTI Given rocephin and d/c home on bactrim Urine culture from urgent care grew pansensitive e.coli Urine culture here at [facility] was negative and blood cultures remained negative as well He received IV rocephin during his stay and then changed to PO cipro 500mg BID x 10 days overall he slowly improved during the stay fevers resolved with last documented temp of 37.8 on 03/10/24 did d/w him that fevers from pyelonephritis can sometimes last 4-5 days in duration recommended, in addition to the cipro, the following - * ask his PCP for referral to urology for prostate check * STOP the bactrim previously prescribed as this could have caused his acute hepatitis (2) Abnormal liver function test: AST, ALT and alk phos were elevated upon admission etiology? 2nd to medications? (bactrim for UTI, statin, etc) viral? other? obtained RUQ u/s - gallstones were present, but no evidence of acute cholecystitis; RUQ u/s did show findings c/w acute hepatitis CMV/EBV/acute hepatitis profile were checked while here and most results were pending at discharge COVID testing was negative on day of discharge his AST/ALT were starting to trend down at discharge recommended the following - * NO tylenol, alcohol * HOLD atorvastatin * repeat LFTs in 5-7 days post-discharge * STOP bactrim finally, to ensure the acutely elevated LFTs were not due to tick-borne disease, lyme screen was done -- negative; anaplasmosis DNA test was sent -- returned negative (3) Hypercholesterolemia: On Atorvastatin but holding due to transaminitis (4) Prediabetes: Chronic - Last a1c 6.1% in August 2023 - On Metformin 1000mg daily which was increased in August from 500mg daily metformin on hold for now Total Time Total Time Spent Total Time Spent (In Minutes): 40 Discharge Plan Discharge Items Patient Disposition: Home - Self-Care Reason For Visit: PYELONEPHRITIS, ACUTE HEPATITIS Discharge Diagnosis: 1. pyelonephritis (kidney infection) - due to e.coli - resolving 2. acute hepatitis / abnormal liver function tests - improving - due to sulfa antibiotic? other? 3. incidentally found gallstones Condition on Discharge: Good Activity: As commented below Activity Comment: gradually increase your activities over the next 7 days Non-emergency contact: Primary Care Provider Call non-emergency contact if: you have any medication questions, your symptoms worsen and your temperature is above 101 Follow-up/Referrals: Jack Braun MD [Primary Care Provider] - (1 week ) Diet: Carb Consistent or DM2 Addtl Attending Provider Instructions: Mr Means, You were treated for urinary tract infection/kidney infection during your stay. The urine culture from the local urgent care grew e.coli bacteria, a common cause of urinary tract infections. CT scan of your abdomen showed a mild amount of swelling around both kidneys which can sometimes be a sign of kidney infection. We did not seen any kidney stones on that CT scan. You gradually improved with IV then oral antibiotics during your stay. Repeat urine culture was negative which suggests you are clearing the urinary infection nicely. Blood cultures have been negative; this means there is no bacteria in your bloodstream. In addition to the above you you had elevated liver enzymes at the time of admission. Medicines such as antibiotics, viruses, and other conditions can cause the liver tests to rise. The liver tests are improving nicely at this time. Ultrasound of your liver showed some findings consistent with the liver tests being elevated. The same ultrasound identified the gallstones. Fortunately the gallstones are "minding their own business" right now; the gall bladder did not appear ill. Recommendations - 1. drink plenty of water over the next few days during your recovery to flush your urinary tract 2. antibiotics - * ciprofloxacin 500mg twice daily x 10 days, next dose TONIGHT * most common side effect of this antibiotic - diarrhea 3. feel free to take aiyc-jxk-imaqgzy probiotics over the next 10 days. You can also eat yogurt daily. These measures may prevent diarrhea from the ciprofloxacin. 4. ask Dr Braun for a referral to a urologist to have your prostate checked. Many men get urinary infections as a result of an enlarged prostate. 5. until your liver tests are repeated please - * DO NOT TAKE tylenol (acetaminophen) * STOP the bactrim (the sulfa antibiotic given by the urgent care) * NO ALCOHOL * HOLD your metformin * HOLD your atorvastatin * ok to take motrin (ibuprofen) as needed for aches/pains or fever 6. with kidney infection it is typicall to have low-grade fever for up to about 5 days. However, it would be unusual to have a fever "spike" from this point moving forward. If you check your temperature and you are 101 degrees or higher please let Dr Braun know. 7. please have your liver function tests repeated in 1 week (next Monday). You can have these checked at Dr Braun's office or the main hospital. I have placed a lab order for you. 8. I will call you with the liver tests, tickborne studies, and viral studies next week. Return to [facility] if - * you have severe diarrhea (3-4 times/day or more) * you have fever >101 degrees * you have worsening abdominal pain, flank pain or back pain * you cannot pass your urine * the whites of your eyes turn yellow * any other concerns It was our pleasure to care for you! -Dr Aguillon Pending Studies at Discharge: Yes Studies:: Ashe virus testing; CMV testing (another virus); tick borne disease studies; blood cultures but they remain negative Stand-Alone Forms: My [facility], Smoking Cessation Medications and DC Order Prescriptions: New ciprofloxacin HCl 500 mg Tablet 500 mg PO BID 10 Days Qty: 20 0RF Held atorvastatin 40 mg tablet 40 mg PO QPM Qty: 90 3RF Hold Instructions: hold until further notice metformin 1,000 mg tablet 1,000 mg PO DAILY Qty: 90 3RF Hold Instructions: hold until your liver function tests have been repeated Discontinued sulfamethoxazole-trimethoprim 800-160 mg tablet 1 tab PO BID Rx Instructions: ordered 03/07/24 take for 14 days Discharge Orders: Discharge Order (Routine); Ordered 03/11/24 Ordered By: Juan Carlos Lee/Other Patient Handouts: What Are Gallstones, Urinary Tract Infections in Men, Kidney Infec Dc Admission Data Admit Date/Time: 03/10/24 20:32 Attending Provider: Juan Carlos Aguillon Admit Provider: Juan Carlos Aguillon Primary Care Provider: Jack Braun Other Providers: Juan Carlos Aguillon Other Interventions: Discharge Summary Assessment (RN) Last Done: 03/11/24 16:30 Coding Level of Care Code 16877 INP/OBS DISCH >30 MIN Diagnoses Acute pyelonephritis N10 Abnormal liver function test R94.5 Hypercholesterolemia E78.00 Prediabetes R73.03
[2024-03-12 13:52] LABS: EBV Nuclear Ag Antibody >600.00 U/mL; EBV Virus Capsid Ag IgG Ab >750.00 U/mL
[2024-03-13 15:43] LABS: CMV IgG Antibody <0.60 U/mL; CMV IgM Antibody <30.00 AU/mL; Hepatitis A Antibody IgM NON-REACTIVE (NON-REACTIVE); Hepatitis B Core Antibody IgM NON-REACTIVE (NON-REACTIVE)
[2024-03-14 12:17] LABS: Babesia microti DNA Not Detected (Not Detected)
--- NOTE | 2024-03-21 05:51 | Coding Query ---
CODING QUERY To promote full compliance with coding requirements relating to patient care, provider participation is requested in all cases of processing technician uncertainty. Please assist us with the question(s) below: Coding Question(s): Discharge Summary states: "acute hepatitis / abnormal liver function tests - improving - due to sulfa antibiotic? other?" Could you please clarify the above documentation in regard to the cause of the patient's hepatitis? Acute Hepatitis, cause unknown/unspecified ( xx ) Acute Hepatitis possibly due to sulfa antibiotics ( ) Other Acute Hepatitis ( ) Cause not listed, please specify ( ) Physician's Response(s): Thank you Savi Triana Principal Diagnosis: "that condition established after study, to be chiefly responsible for occasioning the admission of the patient to the hospital for care." Co-Existing Principal Diagnosis: "when two or more diagnoses equally meet the criteria for principal diagnosis as determined by the circumstances of admission, diagnostic work up, and/or therapy provided, and the Alphabetic Index, Tabular List, or another coding guideline does not provide sequencing direction, any one of the diagnoses may be sequenced first." "When the physician has documented what appears to be a current diagnosis in the body of the record, but has not included the diagnosis in the final diagnostic statement, the physician should be asked whether the diagnosis should be added." (Source Coding Clinic 2 QTR90. p3-4) JOY
== END 2024-03-11 17:19 | disposition home or self-care (01) | DRG 690 ==
LOC: 3N 12:03 → ED 12:03 → 3N 17:15